=== PATIENT | male | born 1935 | race Two or more races ===

== ENCOUNTER 2022-06-11 14:21 | Emergency (ER) | payer OTHER ==
[~2022-06-11] VITALS: Ht 162.6 cm; Wt 72.6 kg
== END 2022-06-11 18:59 | disposition home or self-care (01) ==
LOC: ER 14:21
DX: R42 Dizziness and giddiness (principal); H93.13 Tinnitus, bilateral; E11.9 Type 2 diabetes mellitus without complications; E03.9 Hypothyroidism, unspecified